=== PATIENT | female | born 1945 | race African-American/Black ===

== ENCOUNTER 2017-10-18 23:16 | Emergency (ER) | payer OTHER ==
[~2017-10-18] VITALS: Ht 165.1 cm; Wt 73.0 kg
[~2017-10-18 23:16] MED LIST: AMBI10TA PO; BENI40TA31 PO; LEVA500T33 PO; LORT7.5T3 PO; METR-1 PO
[2017-10-18 23:26] VITALS: BP 230/107; PULSE 100; RESP 20; TEMP 98.1; O2SAT 96
--- NOTE | 2017-10-18 23:56 | PD ---
HPI Chief Complaint: Neuro Symptoms/ Deficits Time Seen by Provider: 23:48 Travel History International Travel<30 days: No Contact w/Intl Traveler<30days: No Traveled to known affect area: No History of Present Illness HPI 72 y/o female presents with her with since she woke up this morning at 10 AM same things that were abnormal for her. An example when they were driving in the car she would ask about the kids which would just be abnormal per her . He feels like she is just been saying random things all day. The patient does take sleeping pills but cannot tell me which one she took today. The states that she did have some alcohol tonight which the patient initially denied but then said that she had some plum wine. She denies any other concurrent complaints. She did have dental work done yesterday but she only had a local injection. PFSH Past Medical History Hypertension: Yes ?: Not Menopausal: Yes : 1 Para: 1 Social History Alcohol Use: Yes (rare/socially only) Tobacco Use: No Substance Use: No Allergies-Medications (Allergen,Severity, Reaction): Coded Allergies: No Known Allergies (Verified Adverse Reaction, Unknown, 10/18/17) Reported Meds & Prescriptions Reported Meds & Active Scripts Active Keflex (Cephalexin) 500 Mg Cap 500 Mg PO Q12H 7 Days Reported Celexa (Citalopram Hydrobromide) 10 Mg Tab 10 Mg PO DAILY Potassium Chloride ER (Potassium Chloride) 10 Meq Cap 10 Meq PO DAILY Losartan (Losartan Potassium) 50 Mg Tab 50 Mg PO DAILY Furosemide 20 Mg Tab 20 Mg PO DAILY Metoprolol Tartrate 50 Mg Tab 50 Mg PO BID Review of Systems Except as stated in HPI: all other systems reviewed are Neg Physical Exam Narrative GENERAL: 72-year-old female in no apparent distress SKIN: Focused skin assessment warm/dry. HEAD: Atraumatic. Normocephalic. EYES: Pupils equal and round. No scleral icterus. No injection or drainage. ENT: No nasal bleeding or discharge. Mucous membranes pink and moist. NECK: Trachea midline. No JVD. CARDIOVASCULAR: Regular rate and rhythm. RESPIRATORY: No accessory muscle use. Clear to auscultation. Breath sounds equal bilaterally. GASTROINTESTINAL: Abdomen soft, non-tender, nondistended. MUSCULOSKELETAL: No obvious deformities. No clubbing. No cyanosis. NEUROLOGICAL: Awake and alert. No obvious cranial nerve deficits. Motor grossly within normal limits. Normal speech. No pronator drift, equal grasp bilaterally, no facial droop, 5 out of 5 in all 4 extremities Data Data Last Documented VS Vital Signs Date Time Temp Pulse Resp B/P (MAP) Pulse Ox O2 Delivery O2 Flow Rate FiO2 10/19/17 04:35 10/18/17 23:52 Room Air 10/18/17 23:26 98.1 100 20 96 Orders Orders Electrocardiogram (10/18/17 23:48) Ammonia (10/18/17 23:48) Complete Blood Count With Diff (10/18/17 23:48) Comprehensive Metabolic Panel (10/18/17 23:48) Creatine Kinase (Cpk) (10/18/17 23:48) Prothrombin Time / Inr (Pt) (10/18/17 23:48) Act Partial Throm Time (Ptt) (10/18/17 23:48) Urinalysis - C+S If Indicated (10/18/17 23:48) Ct Brain W/O Iv Contrast(Rout) (10/18/17 23:48) Blood Glucose (10/18/17 23:48) Ecg Monitoring (10/18/17 23:48) Iv Access Insert/Monitor (10/18/17 23:48) Oximetry (10/18/17 23:48) Sodium Chloride 0.9% Flush (Ns Flush) (10/19/17 00:00) Drug Screen, Random Urine (10/18/17 23:48) Alcohol (Ethanol) (10/18/17 23:48) Potassium Chloride Eff (K-Lyte Cl Eff) (10/19/17 01:00) Cath For Specimen (10/19/17 02:06) Urine Culture (10/19/17 02:44) Ceftriaxone Inj (Rocephin Inj) (10/19/17 04:00) Ed Discharge Order (10/19/17 04:10) Labs Laboratory Tests Test 10/19/17 00:15 10/19/17 02:44 White Blood Count 6.5 TH/MM3 Red Blood Count 3.82 MIL/MM3 Hemoglobin 12.3 GM/DL Hematocrit 36.1 % Mean Corpuscular Volume 94.3 FL Mean Corpuscular Hemoglobin 32.3 PG Mean Corpuscular Hemoglobin Concent 34.2 % Red Cell Distribution Width 14.9 % Platelet Count 221 TH/MM3 Mean Platelet Volume 8.2 FL Neutrophils (%) (Auto) 59.5 % Lymphocytes (%) (Auto) 34.4 % Monocytes (%) (Auto) 5.0 % Eosinophils (%) (Auto) 0.9 % Basophils (%) (Auto) 0.2 % Neutrophils # (Auto) 3.9 TH/MM3 Lymphocytes # (Auto) 2.2 TH/MM3 Monocytes # (Auto) 0.3 TH/MM3 Eosinophils # (Auto) 0.1 TH/MM3 Basophils # (Auto) 0.0 TH/MM3 CBC Comment DIFF FINAL Differential Comment Prothrombin Time 10.1 SEC Prothromb Time International Ratio 1.0 RATIO Activated Partial Thromboplast Time 21.7 SEC Blood Urea Nitrogen 16 MG/DL Creatinine 0.85 MG/DL Random Glucose 116 MG/DL Total Protein 8.0 GM/DL Albumin 3.6 GM/DL Calcium Level 9.0 MG/DL Alkaline Phosphatase 99 U/L Aspartate Amino Transf (AST/SGOT) 23 U/L Alanine Aminotransferase (ALT/SGPT) 17 U/L Total Bilirubin 0.4 MG/DL Sodium Level 139 MEQ/L Potassium Level 3.0 MEQ/L Chloride Level 105 MEQ/L Carbon Dioxide Level 26.7 MEQ/L Anion Gap 7 MEQ/L Estimat Glomerular Filtration Rate 79 ML/MIN Ammonia 13 MCMOL/L Total Creatine Kinase 117 U/L Ethyl Alcohol Level LESS THAN 3 MG/DL Urine Color YELLOW Urine Turbidity CLEAR Urine pH 6.0 Urine Specific [place] 1.015 Urine Protein NEG mg/dL Urine Glucose (UA) NEG mg/dL Urine Ketones NEG mg/dL Urine Occult Blood SMALL Urine Nitrite NEG Urine Bilirubin NEG Urine Urobilinogen LESS THAN 2.0 MG/DL Urine Leukocyte Esterase MOD Urine RBC 3 /hpf Urine WBC 7 /hpf Urine Squamous Epithelial Cells 2 /hpf Urine Bacteria RARE /hpf Urine Mucus FEW /lpf Microscopic Urinalysis Comment CATH-CULTURE IND Urine Opiates Screen NEG Urine Barbiturates Screen NEG Urine Amphetamines Screen NEG Urine Benzodiazepines Screen NEG Urine Cocaine Screen NEG Urine Cannabinoids Screen NEG MDM Medical Decision Making Medical Screen Exam Complete: Yes Emergency Medical Condition: Yes Medical Record Reviewed: Yes (Past history confirmed) Interpretation(s) CBC & BMP Diagram 10/19/17 00:15 Total Protein 8.0, Albumin 3.6, Calcium Level 9.0, Alkaline Phosphatase 99, Aspartate Amino Transf (AST/SGOT) 23, Alanine Aminotransferase (ALT/SGPT) 17, Total Bilirubin 0.4 ct brain no acute Differential Diagnosis Alcohol intoxication, overmedication, electrolyte abnormality, UTI, intercranial Narrative Course We will check blood work, urinalysis, CT brain and reevaluate Patient has had 1 day history where she will say a couple abnormal things. She has no difficulty coming up with words she has no slurred speech and she currently has no abnormality in her speech. ED workup shows urinary tract infection. This could be a component as well as related to her medications that she has been taking to help her sleep. Both patient and agree to no further testing here. Patient given Rocephin and will be sent home on antibiotic. Patient denies new complaints. Given return instructions. Diagnosis Primary Impression: Speech abnormality Qualified Codes: R47.89 - Other speech disturbances Additional Impressions: UTI (urinary tract infection) Qualified Codes: N39.0 - Urinary tract infection, site not specified Hypokalemia Patient Instructions: General Instructions Additional Instructions: return as needed, follow with primary saturday, stop sleeping medication and discuss with your doctor, keep a blood pressure log Med/Other Pt SpecificInfo: Prescription(s) given Scripts Cephalexin (Keflex) 500 Mg Cap 500 MG PO Q12H for Infection for 7 Days, #14 CAP 0 Refills Prov: Mayra Arroyo MD 10/19/17 Disposition: 01 DISCHARGE HOME Condition: Stable Mayra Arroyo MD Oct 18, 2017 23:56
[2017-10-19] MEDS ORDERED: SODIUM CHLORIDE 0.9% FLUSH 10 ML FLUSH IV FLUSH PRN
[2017-10-19] MEDS ORDERED: METO50TA PO (00:03)
[2017-10-19] MEDS ORDERED: CELE10TA PO (00:03)
[2017-10-19] MEDS ORDERED: POTA10CA PO (00:03)
[2017-10-19] MEDS ORDERED: FURO20TA PO (00:03)
[2017-10-19] MEDS ORDERED: LOSA50TA PO (00:03)
[2017-10-19 00:39] LABS: AUTOMATED NEUTROPHIL # 3.9 TH/MM3 (1.8-7.7); BASOPHIL % 0.2 % (0.0-2.0); EOSINOPHIL # 0.1 TH/MM3 (0-0.4); EOSINOPHIL % 0.9 % (0.0-4.0); HEMATOCRIT 36.1 % (35.0-46.0); HEMOGLOBIN 12.3 GM/DL (11.6-15.3); LYMPH % 34.4 % (9.0-44.0); LYMPHOCYTE # 2.2 TH/MM3 (1.0-4.8); MEAN CELL VOLUME 94.3 FL (80.0-100.0); MEAN CORPUSCULAR HEMOGLOBIN 32.3 PG (27.0-34.0); MEAN CORPUSCULAR HGB CONC 34.2 % (32.0-36.0); MEAN PLATELET VOLUME 8.2 FL (7.0-11.0); MONOCYTE # 0.3 TH/MM3 (0-0.9); NEUT % 59.5 % (16.0-70.0); PLATELET COUNT 221 TH/MM3 (150-450); RED BLOOD COUNT 3.82 MIL/MM3 (4.00-5.30); RED CELL DISTRIBUTION WIDTH 14.9 % (11.6-17.2); WHITE BLOOD COUNT 6.5 TH/MM3 (4.0-11.0)
[2017-10-19 00:44] LABS: ALBUMIN 3.6 GM/DL (3.4-5.0); AST (GOT) 23 U/L (15-37); BICARBONATE 26.7 MEQ/L (21.0-32.0); BLOOD UREA NITROGEN 16 MG/DL (7-18); CHLORIDE 105 MEQ/L (98-107); CREATININE 0.85 MG/DL (0.50-1.00); GLOMERULAR FILTRATION RATE 79 ML/MIN (>89); GLUCOSE,RANDOM 116 MG/DL (74-106); SODIUM (NA) 139 MEQ/L (136-145)
[2017-10-19 00:47] LABS: ALKALINE PHOSPHATASE 99 U/L (45-117); ALT (GPT) 17 U/L (10-53); PROTHROMBIN TIME - PATIENT 10.1 SEC (9.8-11.6); TOTAL BILIRUBIN ADULT 0.4 MG/DL (0.2-1.0)
--- NOTE | 2017-10-19 00:47 | RADRPT ---
EXAM DATE/TIME: 10/19/2017 00:31 [facility] COMPARISON: No previous studies available for comparison. INDICATIONS : Altered mental status. RADIATION DOSE: 56.35 CTDIvol (mGy) MEDICAL HISTORY : Hypertension. SURGICAL HISTORY : None. ENCOUNTER: Initial ACUITY: 1 day PAIN SCALE: 0/10 LOCATION: cranial TECHNIQUE: Multiple contiguous axial images were obtained of the head. Using automated exposure control and adj ustment of the mA and/or kV according to patient size, radiation dose was kept as low as reasonably a chievable to obtain optimal diagnostic quality images. DICOM format image data is available electro nically for review and comparison. FINDINGS: CEREBRUM: The ventricles are normal for age. No evidence of midline shift, mass lesion, hemorrhage or acute in farction. No extra-axial fluid collections are seen. POSTERIOR FOSSA: The cerebellum and brainstem are intact. The 4th ventricle is midline. The cerebellopontine angle i s unremarkable. EXTRACRANIAL: The visualized portion of the orbits is intact. SKULL: The calvaria is intact. No evidence of skull fracture. CONCLUSION: 1. Age-appropriate atrophy. No acute findings. Rivera Angel MD on October 19, 2017 at 0:45 Board Certified Radiologist. This report was verified electronically.
[2017-10-19] MEDS ORDERED: POTASSIUM CHLORIDE 25 MEQ EFFERVESCENT TAB PO ONE (01:00)
[2017-10-19 03:38] LABS: BACTERIA, URINE RARE /hpf; BILIRUBIN, URINE NEG (NEG); BLOOD, URINE SMALL (NEG); GLUCOSE,URINE NEG (NEG); KETONE, URINE NEG (NEG); MUCUS URINE FEW /lpf (OCC); NITRITE,URINE NEG (NEG); SQUAMOUS EPITHELIAL CELL URINE 2 /hpf (0-5); URINE COLOR YELLOW (YELLW/STRAW); URINE LEUKOCYTE ESTERASE MOD (NEG)
[2017-10-19] MEDS ORDERED: cefTRIAXone INJ 1,000 MG in SODIUM CHLORIDE 0.9% INJ 100 ML IV ONE (04:00)
[2017-10-19] MEDS ORDERED: CEPH-460 PO (04:11)
--- NOTE | 2017-10-19 08:59 | EKG ---
Date Performed: 10/19/2017 Time Performed: 00:02:47 PTAGE: 72 years EKG: Sinus rhythm VOLTAGE CRITERIA FOR LVH INFERIOR MYOCARDIAL INFARCTION ABNORMAL ECG NO PREVIOUS TRACING DOCTOR: William Austin Interpretating Date/Time 10/19/2017 08:58:15
== END 2017-10-19 05:04 | disposition home or self-care (01) ==
LOC: NEPC 23:16
DX: R47.89 Other speech disturbances (principal); N39.0 Urinary tract infection, site not specified; E87.6 Hypokalemia; R94.31 Abnormal electrocardiogram [ECG] [EKG]; I10 Essential (primary) hypertension
CPT/HCPCS: 70450; 80053; 80307; 81001; 82140; 82550; 85025; 85610; 85730; 87086; 93005; 96365; 99285; J0696